=== PATIENT | female | born 1975 | race African-American/Black ===

== ENCOUNTER 2016-08-06 18:22 | Emergency (ER) | payer MEDICAID ==
[~2016-08-06] VITALS: Ht 162.6 cm; Wt 72.6 kg
[~2016-08-06 18:22] MED LIST: ALBUTEROL SULF8.5 GM INH; AMOXICILLIN500 MG PO; ATENOLOL100 MG ORAL; AUGMENTIN 875-1 EAC1 ORAL; AZITHROMYCIN250 MG ORAL; AZITHROMYCIN250 MG PO; CIPROFLOXACIN500 M2 ORAL; DIFLUCAN100 MG ORAL; DOXYCYCLINE MO100 MG ORAL; FLAGYL500 MG ORAL; FLONASE1 SPRAYS NASAL; GUAIFENESIN-CO118 M1 ORAL; HYDROCHLOROTHIA50 MG ORAL; IBUPROFEN600 MG PO; KEFLEX500 MG ORAL; MEDROL DOSEPAK4 MG ORAL; METRONIDAZOLE500 MG ORAL; NAPROSYN500 M1 PO; NITROFURANTOIN100 M2 ORAL; NORCO 5-325 TA1 EAC1 ORAL; NORCO 5-325 TA1 EACH ORAL; NORCO 5-325 TA1 EACH PO; PHENAZOPYRIDIN200 MG ORAL; PHENERGAN/CODE120 ML ORAL; PHENERGAN/CODE120 ML PO; PHENERGAN6.25 MG/5 ORAL; PREDNISONE20 MG ORAL; PROAIR HFA8.5 GM INH; PROMETHAZI6.25 MG/1 ORAL; PROMETHAZINE-C118 M1 ORAL; ROBITUSSIN DM5 ML GT; TENORMIN50 MG PO; TRAMADOL HCL50 MG ORAL; TYLENOL #31 TAB PO; ULTRAM50 MG PO; VICODIN 5-5001 EACH PO; ZITHROMAX250 MG ORAL
[2016-08-06] MEDS ORDERED: PREDNISONE20 M1 PO (19:19)
[2016-08-06] MEDS ORDERED: ZITHROMAX250 MG ORAL (19:19)
[2016-08-06] MEDS ORDERED: PROMETHAZINE-D118 ML ORAL (19:19)
[2016-08-06 19:26] VITALS: BP 137/101
--- NOTE | 2016-08-06 20:06 | Emergency Room Report ---
History of Present Illness General Chief Complaint: Flu Like Symptoms Present Illness HPI The patient is a 41 all female with a stated history of chronic bronchitis presenting for productive cough, sore throat, and subjective fevers which began 4 days prior. The patient states that she explains as a 10 out of 10 dull ache to the chest and back which occurs only with coughing. Patient states that she has tried albuterol which has not helped. The patient denies any other symptoms including N, V, COSBY, neck pain/stiffness, rash Allergies: Coded Allergies: ASPIRIN (Unverified Allergy, Intermediate, Hives, 03/15/12) IBUPROFEN (Unverified Allergy, Unknown, 01/30/14) Patient History Past Medical History: see triage record Pertinent Family History: none Social History: Reports: smoking Reviewed Nursing Documentation: PMH: Agreed, PSxH: Agreed Nursing Documentation-PMH Hx Hypertension: Yes Hx Pacemaker: No Hx Asthma: No Hx COPD: Yes - BRONCHITIS Hx Diabetes: No Hx Cancer: No Hx Gastrointestinal Problems: No Hx Dialysis: No Hx Neurological Problems: No Hx Cerebrovascular Accident: No Hx Seizures: No Review of Systems All Other Systems: negative except mentioned in HPI Physical Exam Vital Signs Date Time Temp Pulse Resp B/P Pulse Ox O2 Delivery O2 Flow Rate FiO2 08/06/16 18:30 98.2 121 20 137/101 97 Room Air Sp02 EP Interpretation: reviewed, normal General Appearance: no apparent distress, alert, GCS 15, non-toxic Head: normocephalic, atraumatic Eyes: bilateral eye PERRL, bilateral eye normal inspection ENT: hearing grossly normal, normal pharynx, no angioedema, normal voice, uvula midline Neck: full range of motion, supple/symm/no masses Respiratory: chest non-tender, normal breath sounds, speaking full sentences, wheezing Cardiovascular #1: regular rate, rhythm, no edema Musculoskeletal: back normal, gait/station normal, normal range of motion, non- tender Neurologic: alert, oriented x3, responsive, motor strength/tone normal, sensory intact, speech normal Psychiatric: judgement/insight normal, memory normal, mood/affect normal, no suicidal/homicidal ideation Skin: normal color, no rash, warm/dry, well hydrated Lymphatic: no adenopathy Medical Decision Making PA Attestation Dr. Posey is my supervising physician. Patient management was discussed with my supervising physician Diagnostic Impression: Primary Impression: Bronchitis ER Course The patient is a 41 y.o female with a stated history of chronic bronchitis presenting for productive cough, sore throat, and subjective fevers Differential diagnosis include but not limited to pharyngitis, sinusitis, AOM, bronchitis, PNA Physical exam: afebrile. NAD HEENT exam is unremarkable. No tonsillar edema or erythema. Uvula midline. No cervical lymphadenopathy Lungs: Diffuse wheezing. No excessive muscle use. No respiratory distress Chest x-ray unremarkable The patient will be discharged home with a prescription for prednisone, cough medication, and azithromycin due to history of smoking and bronchitis. Patient will follow up with PMD. ER precautions are given Chest X-Ray Diagnostic Results EP Interpretation: Yes Findings: no consolidation, no effusion, no pneumothorax Number of Views: 1 PA Scribe Text I am acting as scribe for my supervising physician. My supervising physician's interpretation of the chest xrays are there is no consolidation, no effusion, no acute cardiopulmonary disease, no pneumothorax Last Vital Signs Date Time Temp Pulse Resp B/P Pulse Ox O2 Delivery O2 Flow Rate FiO2 08/06/16 19:26 98.2 20 137/101 97 Room Air 08/06/16 18:30 121 Status: improved Disposition: HOME, SELF-CARE Condition: Improved Scripts D-Methorphan Hb/Prometh Hcl* (PROMETHAZINE-DM SYRUP*) 118 Ml Syrup 5 ML ORAL Q6H Y for For Cough, #118 ML 0 Refills Prov: TERZIAN,CASEY P.A. 08/06/16 Prednisone (Prednisone) 20 Mg Tablet 20 MG PO DAILY, #5 TAB Prov: TERZIAN,CASEY P.A. 08/06/16 Azithromycin* (ZITHROMAX*) 250 Mg Tablet 250 MG ORAL DAILY, #6 TAB 0 Refills Take two tables once daily for 1 day, then one tablet once daily for 4 days. Prov: TERZIAN,CASEY P.A. 08/06/16 Referrals: NON PHYSICIAN (PCP) Patient Instructions: Acute Bronchitis Additional Instructions: I discussed my findings with the patient. All questions and concerns have been answered. Treatment and medication compliance have been addressed. I advised the patient that they need to follow up with PMD in 3-5 days. Return to ED if pain remains or worsens, cough worsens or remains, you notice blood in your sputum, you notice wheezing, you experience a fever, or if needed for any reason. Patient verbalized understanding of discharge instructions. CASEY PACKER Aug 06, 2016 20:05
--- NOTE | 2016-08-07 10:08 | Diagnostic Imaging Report ---
Indication: COUGH Technique: XRAY CHEST 1 V Comparison: 01/14/2015. Findings: The cardiomediastinal silhouette is normal. The lungs are clear. There is no evidence of pleural fluid. The bones are unremarkable. Impression: Normal chest.
== END 2016-08-06 19:26 | disposition home or self-care (01) ==
LOC: EMR 18:40
DX: J20.9 Acute bronchitis, unspecified (principal); Z88.6 Allergy status to analgesic agent; I10 Essential (primary) hypertension
CPT/HCPCS: 71010; 99284

== ENCOUNTER 2017-05-27 22:32 | Emergency (ER) | payer MEDICAID ==
[~2017-05-27] VITALS: Ht 170.2 cm; Wt 77.1 kg
[~2017-05-27 22:32] MED LIST changes: +PREDNISONE20 M1 PO; +PROMETHAZINE-D118 ML ORAL
--- NOTE | 2017-05-27 23:06 | Emergency Room Report ---
History of Present Illness General Chief Complaint: To Be Triaged Source: Patient Present Illness [facility] This is a 42-year-old female with history of asthma. She presents with chief complaint of coughing, sore throat, body pain. Has been ongoing for last 2 days. Subjective fever and chills. Also with a small cut on her tongue. No other complaint. Pain is 10 out of 10. Coughing is nonproductive in nature. Allergies: Coded Allergies: ASPIRIN (Unverified Allergy, Intermediate, Hives, 03/15/12) IBUPROFEN (Unverified Allergy, Unknown, 01/30/14) Patient History Past Medical History: see triage record, old chart reviewed, asthma Past Surgical History: other Pertinent Family History: none Social History: Denies: smoking Now: No Immunizations: other Reviewed Nursing Documentation: PMH: Agreed, PSxH: Agreed Nursing Documentation-PMH Hx Hypertension: Yes Hx Pacemaker: No Hx Asthma: No Hx COPD: Yes - BRONCHITIS Hx Diabetes: No Hx Cancer: No Hx Gastrointestinal Problems: No Hx Dialysis: No Hx Neurological Problems: No Hx Cerebrovascular Accident: No Hx Seizures: No Review of Systems Constitutional: Reports: chills, fever Eye: Denies: eye pain, blurred vision ENT: Reports: nose congestion, throat pain Respiratory: Reports: cough, shortness of breath Cardiovascular: Denies: chest pain, palpitations Gastrointestinal: Denies: abdominal pain, diarrhea, nausea, vomiting Musculoskeletal: Denies: back pain, joint pain Skin: Denies: rash Neurological: Denies: headache, numbness Endocrine: Denies: increased thirst, increased urine Hematologic/Lymphatic: Denies: easy bruising All Other Systems: negative except mentioned in HPI Physical Exam vitals stable. Sp02 EP Interpretation: reviewed, normal General Appearance: well appearing, no apparent distress, alert Head: normocephalic, atraumatic Eyes: bilateral eye PERRL, bilateral eye EOMI ENT: hearing grossly normal, pharyngeal erythema Neck: full range of motion, supple, no meningismus Respiratory: chest non-tender, lungs clear, normal breath sounds Cardiovascular #1: regular rate, rhythm, no murmur Gastrointestinal: normal bowel sounds, non tender, no mass, no organomegaly, no bruit, non-distended Musculoskeletal: back normal, gait/station normal, normal range of motion Psychiatric: mood/affect normal Skin: warm/dry Medical Decision Making Diagnostic Impression: Primary Impression: Influenza-like illness ER Course Patient with influenza-like illness. No evidence of bacterial infection. No evidence of wheezing. She does have a cough with inspiration. She's already on her inhaler. We'll per her on steroid. Because of her history of asthma, I will put her on Tamiflu even though this has been more than 48 hours. much reassured the patient that her symptoms are viral in nature. There is no Magic pill that will fix her problem tomorrow. with treated symptomatically. Status: unchanged Disposition: HOME, SELF-CARE Condition: Stable Scripts Oseltamivir Phosphate (Tamiflu) 75 Mg Capsule 75 MG ORAL TWICE A DAY, #10 CAP Prov: SYLVIA BERMEO M.D. 05/27/17 Acetaminophen* (ACETAMINOPHEN EXTRA STRENGTH*) 500 Mg Tablet 1000 MG ORAL Q8H Y for Fever/Headache/Mild Pain, #30 TAB Prov: SYLVIA BERMEO M.D. 05/27/17 Prednisone* (PREDNISONE*) 20 Mg Tablet 60 MG ORAL DAILY, #15 TAB Prov: SYLVIA BERMEO M.D. 05/27/17 Additional Instructions: Rest. Increase fluid. Saltwater gargle. Followup your DrAlexa in 3-5 days. Return worse. SYLVIA BERMEO M.D. May 27, 2017 23:06
[2017-05-27] MEDS ORDERED: ACETAMINOPHEN500 M3 ORAL (23:09)
[2017-05-27] MEDS ORDERED: PREDNISONE20 MG ORAL (23:09)
[2017-05-27] MEDS ORDERED: TAMIFLU75 MG ORAL (23:11)
[2017-05-27] MEDS ORDERED: Acetaminophen 500mg (ES) tab ORAL ONE (23:15)
[2017-05-27 23:45] VITALS: BP 122/89
== END 2017-05-27 23:26 | disposition home or self-care (01) ==
LOC: EMR 22:50
DX: J11.1 Influenza due to unidentified influenza virus with other respiratory manifestations (principal); R05 Cough; J02.9 Acute pharyngitis, unspecified; R50.9 Fever, unspecified; Z88.8 Allergy status to other drugs, medicaments and biological substances; I10 Essential (primary) hypertension; J44.9 Chronic obstructive pulmonary disease, unspecified; S01.512A Laceration without foreign body of oral cavity, initial encounter; Y93.89 Activity, other specified; X58.XXXA Exposure to other specified factors, initial encounter; Y92.89 Other specified places as the place of occurrence of the external cause
CPT/HCPCS: 99284

== ENCOUNTER 2017-11-19 14:02 | Emergency (ER) | payer MEDICAID ==
[~2017-11-19] VITALS: Ht 165.1 cm; Wt 79.4 kg
[~2017-11-19 14:02] MED LIST changes: +ACETAMINOPHEN500 M3 ORAL; +TAMIFLU75 MG ORAL
[2017-11-19 14:31] VITALS: BP 144/99
[2017-11-19] MEDS ORDERED: Norco 5mg/325mg tab PO ONE (15:00)
[2017-11-19 15:11] LABS: APPEARANCE,URINE CLOUDY; BILIRUBIN, URINE NEGATIVE (NEGATIVE); GLUCOSE, URINE (UA) NEGATIVE (NEGATIVE); KETONES,URINE 1+ (NEGATIVE); LEUKOCYTE ESTERASE ,URINE 3+ (NEGATIVE); NITRITE,URINE NEGATIVE (NEGATIVE); PH,URINE 5 (4.5-8.0); PROTEIN,URINE 2+ (NEGATIVE); UROBILINOGEN,URINE 4 MG/DL (0.0-1.0)
[2017-11-19 15:12] LABS: COLOR,URINE YELLOW
--- NOTE | 2017-11-19 15:20 | Emergency Room Report ---
History of Present Illness General Chief Complaint: Female Urogenital Problems Source: Patient Present Illness HPI 42-year-old female presents ED complaining of right knee pain. States that she had history of surgery to the right knee in May this year. States that she tripped and fell today landing on her right knee. Notes swelling to the knee. Pain is throbbing, 10 out of 10, nonradiating. Patient also noting vaginal discharge. Possible concern for STD. States the discharge is green. Denies dysuria or hematuria. Denies flank pain. Denies nausea or vomiting. No other aggravating relieving factors. Denies any other associated symptoms Allergies: Coded Allergies: ASPIRIN (Unverified Allergy, Intermediate, Hives, 03/15/12) IBUPROFEN (Unverified Allergy, Unknown, 01/30/14) Patient History Past Medical History: HTN, asthma Past Surgical History: other - R knee Pertinent Family History: none Social History: Denies: smoking, alcohol use, drug use Last Menstrual Period: NA Now: No Immunizations: UTD Reviewed Nursing Documentation: PMH: Agreed; PSxH: Agreed Nursing Documentation-PMH Past Medical History: No History, Except For Hx Hypertension: Yes Hx Pacemaker: No Hx Asthma: Yes Hx COPD: Yes - BRONCHITIS Hx Diabetes: No Hx Cancer: No Hx Gastrointestinal Problems: No Hx Dialysis: No Hx Neurological Problems: No Hx Cerebrovascular Accident: No Hx Seizures: No Review of Systems All Other Systems: negative except mentioned in HPI Physical Exam Vital Signs Date Time Temp Pulse Resp B/P (MAP) Pulse Ox O2 Delivery O2 Flow Rate FiO2 11/19/17 14:07 98.2 92 16 144/99 95 Room Air 98.2 Sp02 EP Interpretation: reviewed, normal General Appearance: no apparent distress, alert, GCS 15, non-toxic Head: normocephalic Eyes: bilateral eye normal inspection, bilateral eye PERRL ENT: normal ENT inspection Neck: normal inspection Respiratory: normal inspection Cardiovascular #1: normal inspection Gastrointestinal: normal inspection Rectal: deferred Genitourinary: no CVA tenderness Musculoskeletal: tender - R knee Neurologic: alert, oriented x3, responsive, motor strength/tone normal, sensory intact, speech normal Psychiatric: judgement/insight normal, memory normal, mood/affect normal, no suicidal/homicidal ideation Skin: normal inspection Lymphatic: normal inspection Procedures Splinting Splinting : Consent: Verbal Pre-Made Type: GERMAN wrap - R knee Pre-Proc Neuro Vasc Exam: normal Post-Proc Neuro Vasc Exam: normal Patient Tolerated: Well Complications: None Medical Decision Making Diagnostic Impression: Primary Impression: UTI (urinary tract infection) Qualified Codes: N39.0 - Urinary tract infection, site not specified Additional Impressions: Encounter for assessment of STD exposure Knee pain, right Qualified Codes: M25.561 - Pain in right knee ER Course Hospital Course 42-year-old female presents ED with greenish urethral discharge. History of unprotected sex. c/o R knee pain s/p fall Differential diagnoses include: trichimonas, gonorrhea, chlamydia Clinical course Patient placed on stretcher. After initial history and physical I ordered UA, right knee x-ray Right knee x-ray shows no acute fracture or dislocation. Placed in German wrap UA positive bacteria. Concern for STI. We'll treat for Trichomonas and gonorrhea and chlamydia. Given Rocephin/azithromycin here Diagnosis - UTI, encounter for STD exposure, R knee pain Stable and discharged home with prescriptions for Rx Flagyl, keflex, Tylenol # 3. Instructed to followup with PMD. Return to ED if symptoms recur or worsen Labs Test 11/19/17 14:48 Urine Color Yellow Urine Appearance Cloudy Urine pH 5 (4.5-8.0) Urine Specific [place] 1.025 (1.005-1.035) Urine Protein 2+ (NEGATIVE) Urine Glucose (UA) Negative (NEGATIVE) Urine Ketones 1+ (NEGATIVE) Urine Occult Blood 2+ (NEGATIVE) Urine Nitrite Negative (NEGATIVE) Urine Bilirubin Negative (NEGATIVE) Urine Urobilinogen 4 MG/DL (0.0-1.0) Urine Leukocyte Esterase 3+ (NEGATIVE) Urine RBC 15-20 /HPF (0 - 2) Urine WBC Tntc /HPF (0 - 2) Urine Squamous Epithelial Cells Few /LPF (NONE/OCC) Urine Calcium Oxalate Crystals Few /LPF (NONE) Urine Bacteria Moderate /HPF (NONE) Last Vital Signs Date Time Temp Pulse Resp B/P (MAP) Pulse Ox O2 Delivery O2 Flow Rate FiO2 11/19/17 14:55 98.2 11/19/17 14:31 16 144/99 95 Room Air 11/19/17 14:07 92 Status: improved Disposition: HOME, SELF-CARE Condition: Stable Scripts Acetaminophen With Codeine (T#3) (TYLENOL #3 TAB*) Y Tab 1 TAB ORAL Q8H PRN for For Pain, #20 TAB Prov: Vance Posey MD 11/19/17 Cephalexin* (KEFLEX*) 500 Mg Capsule 500 MG ORAL EVERY 6 HOURS, #28 CAP Prov: Vance Posey MD 11/19/17 Metronidazole* (FLAGYL*) 500 Mg Tablet 500 MG ORAL THREE TIMES A DAY, #21 TAB Prov: Vance Posey MD 11/19/17 Vance Posey MD Nov 19, 2017 15:20
[2017-11-19] MEDS ORDERED: Azithromycin 250mg tab ORAL ONE (15:30)
[2017-11-19] MEDS ORDERED: Lidocaine 1% MPF 10mg/ml 5ml INJ ONE (15:30)
[2017-11-19] MEDS ORDERED: CEPHALEXIN500 MG ORAL (15:38)
[2017-11-19] MEDS ORDERED: ACETAMINOPHEN-1 EAC1 ORAL (15:38)
[2017-11-19] MEDS ORDERED: METRONIDAZOLE500 MG ORAL (15:38)
[2017-11-19 15:48] VITALS: BP 132/92
--- NOTE | 2017-11-20 10:52 | Diagnostic Imaging Report ---
Indication: Knee pain Technique: 3 views of the right knee Comparison: None Findings: There is a tiny superior pole patellar osteophyte and medial compartment osteophytes. The joint spaces are preserved. No acute fractures. No dislocations. There is equivocally a small suprapatellar effusion. Impression: No acute bony trauma
== END 2017-11-19 15:40 | disposition home or self-care (01) ==
LOC: EMR 14:45
DX: N39.0 Urinary tract infection, site not specified (principal); M25.561 Pain in right knee; Z20.2 Contact with and (suspected) exposure to infections with a predominantly sexual mode of transmission; Z88.6 Allergy status to analgesic agent; I10 Essential (primary) hypertension; J45.909 Unspecified asthma, uncomplicated
CPT/HCPCS: 73562; 81001; 87086; 96372; 99283; J0696; Q0144

== ENCOUNTER 2017-12-13 12:00 | Emergency (ER) | payer MEDICAID ==
[~2017-12-13] VITALS: Ht 170.2 cm; Wt 85.3 kg
[~2017-12-13 12:00] MED LIST changes: +ACETAMINOPHEN-1 EAC1 ORAL; +CEPHALEXIN500 MG ORAL
[2017-12-13] MEDS ORDERED: Acetaminophen 500mg (ES) tab ORAL ONE (12:30)
[2017-12-13] MEDS ORDERED: Albuterol/Ipratropium 3ml neb HHN ONE (12:30)
--- NOTE | 2017-12-13 12:52 | Emergency Room Report ---
History of Present Illness General Chief Complaint: Lower Extremity Injury Source: Patient, Medical Record Present Illness HPI 42-year-old female patient presents to ER with multiple complaints. Patient reporting bilateral leg pain from her calf down to her feet. Reports pain is been present for the past few weeks. Reports 2 weeks ago she went to [facility] have her legs checked, states that they ruled out DVT at that time with ultrasound. Reports pain is worse after walking, reports pain symptoms improve when she stopped. Reports that she has been elevating her legs and taking Tylenol for pain symptoms. Reports history of hypertension, currently taking clonidine and amlodipine. Denies chest pain,, abdominal pain, vision changes. Also has a history of Graves' disease. Also reports history of asthma , complaining of cough for the several days. Reports difficulty breathing. Reports use her inhaler last night without relief of symptoms. Denies fever, vomiting, other acute symptoms. Hx of emphysema, reports quit smoking years ago. 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 Denies hx of TB, denies night sweats, weight loss. Allergies: Coded Allergies: ASPIRIN (Unverified Allergy, Intermediate, Hives, 03/15/12) IBUPROFEN (Unverified Allergy, Unknown, 01/30/14) Patient History Past Medical History: see triage record Reviewed Nursing Documentation: PMH: Agreed; PSxH: Agreed Nursing Documentation-PMH Past Medical History: No History, Except For Hx Hypertension: Yes Hx Pacemaker: No Hx Asthma: Yes Hx COPD: Yes - BRONCHITIS Hx Diabetes: No Hx Cancer: No Hx Gastrointestinal Problems: No Hx Dialysis: No Hx Neurological Problems: No Hx Cerebrovascular Accident: No Hx Seizures: No Review of Systems All Other Systems: negative except mentioned in HPI Physical Exam Vital Signs Date Time Temp Pulse Resp B/P (MAP) Pulse Ox O2 Delivery O2 Flow Rate FiO2 12/13/17 12:04 98.0 88 18 128/84 95 Room Air 98.1 Sp02 EP Interpretation: reviewed, normal General Appearance: well appearing, no apparent distress, alert, GCS 15, non- toxic Head: normocephalic, atraumatic Eyes: bilateral eye normal inspection, bilateral eye PERRL ENT: hearing grossly normal, normal pharynx, no angioedema, normal voice, TMs + canals normal, uvula midline, moist mucus membranes Neck: full range of motion Respiratory: lungs clear, no rhonchi, no respiratory distress, no accessory muscle use, no wheezing, decreased breath sounds, speaking full sentences Cardiovascular #2: 2+ radial (R), 2+ radial (L), 2+ dorsalis pedis (R), 2+ dorsalis pedis (L) Genitourinary: no CVA tenderness Musculoskeletal: back normal, digits/nails normal, gait/station normal, normal range of motion, non-tender, no calf tenderness, Pankaj's Sign negative Neurologic: alert, oriented x3, responsive, motor strength/tone normal, SLR negative, sensory intact Psychiatric: mood/affect normal Skin: other - no pallor, no erythema, no edema Medical Decision Making PA Attestation Dr. Angel is my supervising Physician whom patient management has been discussed with. Diagnostic Impression: Primary Impression: Lower extremity pain, bilateral Additional Impressions: Cough History of asthma ER Course Pt presents to ED c/o cough and bilateral lower leg pain. DDX considered but are not limited to asthma, viral URI, influenza, bronchitis. Pankaj sign negative, no calf swelling, low suspicion for DVT. Low suspicion for pulmonary embolism per well's criteria. lungs have no wheezes, rhonchi or rales, no fever, suspicion for pneumonia, does not require chest x-ray at this time. VITAL SIGNS are WNL, patient is afebrile. Ordered breathing treatment and medication. ER COURSE Patient provided with prednisone. Albuterol/Atrovent breathing treatment provided. Following treatment patient states breathing symptoms improved, no wheezes, rhonci, or rales on auscultation. Patient is resting comfortably in no acute distress, nontoxic appearing. Discharge home with prednisone and albuterol. Take prednisone beginning tomorrow. Provided with Rx for promethazine cough medication. Provided with Tylenol in ER for pain symptoms. Bedside Doppler shows 2+ dorsalis pedis pulses bilaterally. No pallor, poikilothermia, pulselessness, low suspicion for arterial occlusion. Discuss use of compression stockings and other treatments with PCP. No hx of injury, no warmth to palpation, no swollen joints, low suspicion for septic joint or injury, does not require imaging at this time. Followup outpatient for further imaging and treatment. Pain may be related to overuse due to hx of job requiring longs periods of standing. patient observed ambulating with steady gait without limp on the ER without difficulty. RICE method: rest, ice, compression, elevation. Followup with PCP to discuss need for vascular referral and imaging. Discus HTN medications and need for cardiology referral. DISCHARGE: -Rx given for Prednisone. -Rx provided for Albuterol MDI. -Rx provided for Tylenol -Rx provided for promethazine At this time pt is stable for d/c to home. Patient is resting comfortably in no acute distress, nontoxic appearing, able to answer questions without difficulty. Patient to take medications as instructed Will provide with patient care instructions and any necessary prescriptions. Care plan and follow-up instructions provided. Patient instructed to follow-up with primary care provider in 3 - 5 days. Patient questions asked and answered. Patient reports understanding and agreement to treatment plan. ER precautions given. Patient instructed to return to ER immediately for any new or worsening of symptoms including but not limited to increasing SOB, persistent fever. - Please note that this Emergency Department Report was dictated using [employer] development manager technology software, occasionally this can lead to erroneous entry secondary to interpretation by the dictation equipment. Last Vital Signs Date Time Temp Pulse Resp B/P (MAP) Pulse Ox O2 Delivery O2 Flow Rate FiO2 12/13/17 12:04 98.0 88 18 128/84 95 Room Air 98.1 Status: improved Disposition: HOME, SELF-CARE Condition: Stable Scripts Promethazine Hcl (PROMETHAZINE HCL*) 6.25 Mg/5 Ml Syrup 5 ML ORAL Q8H, #120 ML 0 Refills Prov: Kelvin Silverio.A. 12/13/17 Acetaminophen* (TYLENOL EXTRA STRENGTH*) 500 Mg Tablet 500 MG ORAL Q8H PRN for Prn Headache/Temp > 101, #30 TAB 0 Refills Prov: Kelvin Silverio.A. 12/13/17 Prednisone* (PREDNISONE*) 20 Mg Tablet 40 MG ORAL DAILY for 4 Days, #8 TAB Prov: Kelvin Silverio.A. 12/13/17 Albuterol Sulfate* (ALBUTEROL SULFATE MDI*) 8.5 Gm Hfa.aer.ad 2 PUFF INH Q6H, #1 INH 0 Refills Prov: Kelvin Silverio.A. 12/13/17 Patient Instructions: Cough, Adult, [id number], Intermittent Claudication Additional Instructions: Patient instructed to follow up with primary care provider and discuss further referral at that time. Discuss referral to cardiology and vascular specialist. Discuss need for further imaging at that time. Followup with thyroid specialist. Patient instructed on RICE method: rest, ice, compression, elevation. Patient instructed to WBAT. Take medications as directed. Patient questions asked and answered. ER precautions given, patient instructed to return to ER immediately for any new or worsening of symptoms. Kelvin Silverio Dec 13, 2017 12:52
[2017-12-13] MEDS ORDERED: PREDNISONE20 MG ORAL (13:11)
[2017-12-13] MEDS ORDERED: ALBUTEROL SULF8.5 GM INH (13:11)
[2017-12-13] MEDS ORDERED: TYLENOL EXTRA500 MG ORAL (13:11)
[2017-12-13] MEDS ORDERED: PROMETHAZI6.25 MG/1 ORAL (13:18)
[2017-12-13 13:23] VITALS: BP 119/76
== END 2017-12-13 13:23 | disposition home or self-care (01) ==
LOC: EMR 12:41
DX: M79.605 Pain in left leg (principal); M79.604 Pain in right leg; R05 Cough; I10 Essential (primary) hypertension; Z88.6 Allergy status to analgesic agent; J44.9 Chronic obstructive pulmonary disease, unspecified
CPT/HCPCS: 94640; 94664; 99284; J7512; J7620

== ENCOUNTER 2018-07-26 14:21 | Emergency (ER) | payer MEDICAID ==
[~2018-07-26] VITALS: Ht 170.2 cm; Wt 90.7 kg
[~2018-07-26 14:21] MED LIST changes: +TYLENOL EXTRA500 MG ORAL
[2018-07-26] MEDS ORDERED: LEVOTHYROXINE175 MCG ORAL (14:28)
[2018-07-26] MEDS ORDERED: AMLODIPINE BESY10 MG ORAL (14:28)
[2018-07-26 14:30] VITALS: BP 140/97
--- NOTE | 2018-07-26 14:40 | NUR ---
ED Nurse Note: pt walked in c/o left knee pain and swelling, denies injury, pt states she's been having pain for a while. noted tenderness and mild swelling but no sx injury, no open wound noted, CMS intact BLE, cap refill <3sec. will cont monitor.
[2018-07-26] MEDS ORDERED: Tylenol #3 tab (300mg/30mg) ORAL ONE (15:30)
[2018-07-26] MEDS ORDERED: Ketorolac 30mg Inj IM ONE (15:45)
--- NOTE | 2018-07-26 16:28 | Emergency Room Report ---
History of Present Illness General Chief Complaint: Pain Source: Patient Present Illness HPI 43-year-old female presents to the emergency department complaining of localized progressive 10 out of 10 in severity pain and swelling to the left knee 4 days. Patient reports several falls just prior to onset of her symptoms. Patient states that she feels as though her knee wants to give out from under her. Patient denies recent open wounds, erythema or warmth. Patient reports some pain with movement/bending. Denies calf pain or swelling. Denies numbness tingling or loss of sensation or gross motor movements of the extremities, incontinence of bowel or bladder. Denies CP, Palpitations, LOC, AMS , dizziness, Changes in Vision, weakness or a sudden severe headache. Pain exacerbated with walking. pt. able to bear some weight. Denies fevers or chills. Allergies: Coded Allergies: ASPIRIN (Unverified Allergy, Intermediate, Hives, 03/15/12) IBUPROFEN (Unverified Allergy, Unknown, 01/30/14) Patient History Past Medical History: see triage record Past Surgical History: none Pertinent Family History: none Now: No Reviewed Nursing Documentation: PMH: Agreed; PSxH: Agreed Nursing Documentation-PMH Past Medical History: No History, Except For Hx Hypertension: Yes Hx Pacemaker: No Hx Asthma: Yes Hx COPD: Yes - BRONCHITIS Hx Diabetes: No Hx Cancer: No Hx Gastrointestinal Problems: No Hx Dialysis: No Hx Neurological Problems: No Hx Cerebrovascular Accident: No Hx Seizures: No Review of Systems All Other Systems: negative except mentioned in HPI Physical Exam Vital Signs Date Time Temp Pulse Resp B/P (MAP) Pulse Ox O2 Delivery O2 Flow Rate FiO2 07/26/18 14:22 97.9 110 20 159/101 98 Room Air Sp02 EP Interpretation: reviewed, normal General Appearance: alert, GCS 15, non-toxic, mild distress Head: normocephalic, atraumatic Eyes: bilateral eye normal inspection, bilateral eye PERRL ENT: hearing grossly normal, normal voice Neck: full range of motion Respiratory: lungs clear, normal breath sounds, speaking full sentences Cardiovascular #1: regular rate, rhythm Cardiovascular #2: 2+ dorsalis pedis (R), 2+ dorsalis pedis (L) Musculoskeletal: back normal, normal range of motion - with pain, tender - Left Knee, Swelling, no erythema or warmth. FROM with pain, no increased laxity of ligaments, no obvious deformity Neurologic: alert, oriented x3, responsive, motor strength/tone normal, sensory intact, speech normal, grossly normal Psychiatric: judgement/insight normal Skin: normal color, no rash, warm/dry, well hydrated Lymphatic: no adenopathy Medical Decision Making PA Attestation Dr. Schwarz is my supervising Physician whom patient management has been discussed with. Diagnostic Impression: Primary Impression: Knee effusion Qualified Codes: M25.462 - Effusion, left knee ER Course 43-year-old female presents to the emergency department complaining of localized progressive 10 out of 10 in severity pain and swelling to the left knee 4 days. Patient reports several falls just prior to onset of her symptoms. Patient states that she feels as though her knee wants to give out from under her. Patient denies recent open wounds, erythema or warmth. Patient reports some pain with movement/bending. Denies calf pain or swelling. Denies numbness tingling or loss of sensation or gross motor movements of the extremities, incontinence of bowel or bladder. Denies CP, Palpitations, LOC, AMS , dizziness, Changes in Vision, weakness or a sudden severe headache. Pain exacerbated with walking. pt. able to bear some weight. Denies fevers or chills. Ddx considered but are not limited to Fracture, dislocation, contusion, septic joint, pseudo gout, gout, cellulitis, effusion , Sprain/Strain/Spasm, ligamental injury just to name a few. Vital signs: are WNL, pt. is afebrile H&PE are most consistent with knee strain/ overuse. ORDERS: X-ray Right knee complete 3 view - negative for fx, Dislocation, or significant soft tissue injury ED INTERVENTIONS: - Tylenol # 3 -Knee Immobilizer splint applied to the Right Knee by technical document writer. Pt. remains neurovascularly intact. --Patient is provided with crutches and instructed on their use -I do not identify an emergent condition at this time. With current presentation , pt. is stable for close outpatient follow up and conservative treatment. D/ w pt. to return promptly to ED with worsening or new symptoms.- Pt. verbalizes' understanding and agreement with proposed treatment plan.proposed treatment plan. DISCHARGE: At this time pt. is stable for d/c to home. Will provide printed patient care instructions, and any necessary prescriptions. Care plan and follow up instructions have been discussed with the patient prior to discharge. Other X-Ray Diagnostic Results Other X-Ray Diagnostic Results : X-Ray ordered: Left KNee # of Views/Limited Vs Complete: 3 View Indication: Pain EP Interpretation: Yes PA Xray: Interpretation reviewed, by supervising MD, and agrees with findings. Interpretation: no dislocation, no soft tissue swelling, no fractures Impression: No acute disease Electronically Signed by: Debo Amos PA-C Last Vital Signs Date Time Temp Pulse Resp B/P (MAP) Pulse Ox O2 Delivery O2 Flow Rate FiO2 07/26/18 14:30 97.9 98 18 140/97 98 Room Air Status: improved Disposition: HOME, SELF-CARE Condition: Stable Scripts Diclofenac Sodium (VOLTAREN) 100 Gm Gel..gram. 1 APPLIC TP Q6HR, #100 GM Prov: Debo Amos 07/26/18 Hydrocodone Bit/Acetaminophen 5-325* (NORCO 5-325*) 1 Each Tablet 1 TAB ORAL Q6H PRN for For Pain, #15 TAB 0 Refills Prov: Debo Amos 07/26/18 Patient Instructions: Knee Effusion, [id number] Additional Instructions: Take medications as directed. Follow up with an CNC TECHNICIAN in 3-5 days, even if your symptoms have resolved. If symptoms persist MRI may be required at the discretion of your PCP or Ortho Specialist. --Please review list of primary care clinics, if you do not already have a primary care provider who can give you an Orthopedic Referral. Return sooner to ED if new symptoms occur, or current symptoms become worse. Do not drink alcohol, drive, or operate heavy machinery while taking [place] as this may cause drowsiness. - Please note that this Emergency Department Report was dictated using [employer] fuselage framer technology software, occasionally this can lead to erroneous entry secondary to interpretation by the dictation equipment. Debo Amos Jul 26, 2018 16:28
--- NOTE | 2018-07-26 16:41 | Diagnostic Imaging Report ---
Indications: Left knee pain Technique: Three views of the left knee Comparison: None Findings: No acute fractures. No dislocations. Joint spaces are preserved. No radiopaque foreign body. Normal mineralization. Impression: No acute process
[2018-07-26] MEDS ORDERED: VOLTAREN100 G1 TP (16:51)
[2018-07-26] MEDS ORDERED: NORCO 5-325 TA1 EACH ORAL (16:51)
--- NOTE | 2018-07-26 17:00 | NUR ---
ER DISCHARGE NOTE: Patient is cleared to be discharged per ERPA, pt is aox4, on room air, with stable vital signs. pt was given dc and prescription instructions, pt was able to verbalize understanding, pt id band removed pt is able to ambulate with steady gait. pt took all belongings.
[2018-07-26 17:13] VITALS: BP 140/97
== END 2018-07-26 17:16 | disposition home or self-care (01) ==
LOC: EMR 14:58
DX: M25.462 Effusion, left knee (principal); M25.562 Pain in left knee; I10 Essential (primary) hypertension; J44.9 Chronic obstructive pulmonary disease, unspecified; Z88.6 Allergy status to analgesic agent
CPT/HCPCS: 29505; 73562; 96372; 99283; J1885

== ENCOUNTER 2018-07-28 18:12 | Emergency (ER) | payer MEDICAID ==
[~2018-07-28] VITALS: Ht 170.2 cm; Wt 88.5 kg
[~2018-07-28 18:12] MED LIST changes: +AMLODIPINE BESY10 MG ORAL; +LEVOTHYROXINE175 MCG ORAL; +VOLTAREN100 G1 TP
[2018-07-28 18:15] VITALS: BP 152/99
--- NOTE | 2018-07-28 18:18 | NUR ---
ED Nurse Note:pt. was BIBA from home with left knee pain and swelling
[2018-07-28] MEDS ORDERED: Dexamethasone 4mg/ml vial IM ONE (18:30)
[2018-07-28] MEDS ORDERED: Dexamethasone 4mg/ml vial IVP ONE (18:30)
[2018-07-28] MEDS ORDERED: Acetaminophen 500mg (ES) tab ORAL ONE (18:30)
--- NOTE | 2018-07-28 18:53 | Emergency Room Report ---
History of Present Illness General Chief Complaint: Pain Source: Patient Present Illness HPI 43-year-old female with history of left knee effusion brought in by ambulance complaining of worsening of swelling of the left knee. Patient was here 2 days ago for the same complaint x-ray was done and she was discharged with pain medication and was given a Toradol injection in the emergency room at the time. Patient reports she has not started the pain medication yet as she started noticing more swelling and does not believe that the pain medication is going to help with the swelling. Complains of tingling in her left knee has an appointment with a primary care provider. Denies any new injury, pain radiation , rating the pain 10 out of 10 and constant. Complains of decreased range of motion has called her primary care provider and MRI scheduled for this Monday. Reports that her insurance does not cover topical pain medications. Denies chest pain, SOB, palpitation, abdominal pain, and other associated symptoms Allergies: Coded Allergies: ASPIRIN (Unverified Allergy, Intermediate, Hives, 03/15/12) IBUPROFEN (Unverified Allergy, Unknown, 01/30/14) Patient History Past Medical History: see triage record Past Surgical History: none Pertinent Family History: none Last Menstrual Period: 2014 Now: No Immunizations: UTD Reviewed Nursing Documentation: PMH: Agreed; PSxH: Agreed Nursing Documentation-PMH Past Medical History: No History, Except For Hx Hypertension: Yes Hx Pacemaker: No Hx Asthma: Yes Hx COPD: Yes - BRONCHITIS Hx Diabetes: Yes Hx Cancer: No Hx Gastrointestinal Problems: No Hx Dialysis: No Hx Neurological Problems: No Hx Cerebrovascular Accident: No Hx Seizures: No Review of Systems All Other Systems: negative except mentioned in HPI Physical Exam Vital Signs Date Time Temp Pulse Resp B/P (MAP) Pulse Ox O2 Delivery O2 Flow Rate FiO2 07/28/18 18:07 98.1 92 18 152/99 97 Sp02 EP Interpretation: reviewed, normal General Appearance: normal inspection, well appearing, no apparent distress, alert Head: normocephalic, atraumatic Eyes: bilateral eye normal inspection, bilateral eye PERRL ENT: normal ENT inspection, hearing grossly normal Neck: normal inspection, full range of motion, supple Respiratory: normal inspection, chest non-tender, lungs clear Cardiovascular #1: normal inspection, regular rate, rhythm, no gallop, no murmur Cardiovascular #2: 2+ dorsalis pedis (R), 2+ dorsalis pedis (L) Gastrointestinal: normal inspection, non tender, soft Musculoskeletal: back normal, digits/nails normal, swelling - left knee Neurologic: normal inspection, alert, oriented x3 Psychiatric: normal inspection, judgement/insight normal Skin: normal inspection, normal color, no rash Lymphatic: normal inspection, no adenopathy Medical Decision Making PA Attestation all diagnosis and treatment plans were reviewed and discussed with my supervising physician Dr. Schwarz Diagnostic Impression: Primary Impression: Effusion, left knee ER Course 43-year-old female with history of left knee effusion brought in by ambulance complaining of worsening of swelling of the left knee. Patient was here 2 days ago for the same complaint x-ray was done and she was discharged with pain medication and was given a Toradol injection in the emergency room at the time. Patient reports she has not started the pain medication yet as she started noticing more swelling and does not believe that the pain medication is going to help with the swelling. Complains of tingling in her left knee has an appointment with a primary care provider. Denies any new injury, pain radiation , rating the pain 10 out of 10 and constant. Complains of decreased range of motion has called her primary care provider and MRI scheduled for this Monday. Reports that her insurance does not cover topical pain medications. Denies chest pain, SOB, palpitation, abdominal pain, and other associated symptoms Ddx considered but are not limited to Left knee effusion, left knee sprain, left knee fracture, Vital signs: are WNL, pt. is afebrile H&PE are most consistent with left knee effusion ORDERS:Tylenol 500, dexamethasone, prednisone ED INTERVENTIONS: None required at this time. DISCHARGE: At this time pt. is stable for d/c to home. Will provide printed patient care instructions, and any necessary prescriptions. Care plan and follow up instructions have been discussed with the patient prior to discharge. take medication as directed and take a prescription from 2 days ago and new prescription follow with the primary care provider follow-up with MRI and possible physical therapy and orthopedic elevate your leg keep putting the German wrap on her knee to minimize swelling Last Vital Signs Date Time Temp Pulse Resp B/P (MAP) Pulse Ox O2 Delivery O2 Flow Rate FiO2 07/28/18 18:15 98.1 79 18 152/99 97 Disposition: HOME, SELF-CARE Condition: Stable Scripts Acetaminophen* (TYLENOL EXTRA STRENGTH*) 500 Mg Tablet 500 MG ORAL Q8H PRN for Prn Headache/Temp > 101, #30 TAB 0 Refills Prov: Lakshmi Mayorga 07/28/18 Prednisone* (PREDNISONE*) 20 Mg Tablet 20 MG ORAL TID for 3 Days, #9 TAB 0 Refills Prov: Lakshmi Mayorga 07/28/18 Referrals: NON PHYSICIAN (PCP) Patient Instructions: Knee Effusion, [id number] Additional Instructions: take medication as directed, follow with a primary care provider for further imaging such as MRI, elevate your leg, also had this pain icing and heating Lakshmi Mayorga Jul 28, 2018 18:52
[2018-07-28] MEDS ORDERED: TYLENOL EXTRA500 MG ORAL (18:54)
[2018-07-28] MEDS ORDERED: PREDNISONE20 MG ORAL (18:54)
[2018-07-28 19:02] VITALS: BP 152/99
--- NOTE | 2018-07-28 19:04 | NUR ---
Ed Nurse Note:pt. received pain meds and rachelle wrap on left knee pt is cleared to be DC per ER provider, pt discharge and aftercare instruction provided w/ prescription, pt education done via discussion and handout, pt advised to follow up with pcp or return to ED if sx worsen or new sx develop, pt verbalized understanding and agrees with plan, pt vss, ambulatory w/ steady gait, all belongiongs left w/ pt, wristband removed.
== END 2018-07-28 19:05 | disposition home or self-care (01) ==
LOC: EDBD 18:12 → EMR 18:24
DX: M25.462 Effusion, left knee (principal); I10 Essential (primary) hypertension; J45.909 Unspecified asthma, uncomplicated; E11.9 Type 2 diabetes mellitus without complications; Z88.6 Allergy status to analgesic agent
CPT/HCPCS: 96372; 99283; J1100

== ENCOUNTER 2019-02-02 10:07 | Emergency (ER) | payer MEDICAID ==
[~2019-02-02] VITALS: Ht 167.6 cm; Wt 88.5 kg
--- NOTE | 2019-02-02 10:27 | NUR ---
ED Nurse Note: Pt came in from home due to productive coughing with yellowish sputum x 3 days. Has hx of Asthma and Bronchitis and taking HHN at home. Also c/o vaginal discharge yellowish with foul odor and burning sensation while urinating x 2 days.
--- NOTE | 2019-02-02 10:37 | Emergency Room Report ---
History of Present Illness General Chief Complaint: Upper Respiratory Illness Source: Patient, Medical Record Present Illness HPI Patient presents with several complaints initial complaint is cough and congestion Also reports sore throat patient reports that she took a breathing treatment at home and does feel better with her breathing Patient reports that she has also had some increased vaginal discharge She feels that she might have an STD and would like to be treated Denies any vomiting or diarrhea denies any fevers or chills sore throat is 5 out of 10 worse with cough and swallowing Denies any rash denies any recent travel Allergies: Coded Allergies: IBUPROFEN (Unverified Allergy, Unknown, 01/30/14) Patient History Past Medical History: see triage record Last Menstrual Period: 5 years ago Reviewed Nursing Documentation: PMH: Agreed; PSxH: Agreed Nursing Documentation-PMH Past Medical History: No History, Except For Hx Cardiac Problems: No - HYPOTHYROIDISM Hx Hypertension: Yes Hx Pacemaker: No Hx Asthma: Yes Hx COPD: Yes - BRONCHITIS Hx Diabetes: Yes Hx Cancer: No Hx Gastrointestinal Problems: No Hx Dialysis: No History Of Psychiatric Problem: No Hx Neurological Problems: No Hx Cerebrovascular Accident: No Hx Seizures: No Review of Systems All Other Systems: negative except mentioned in HPI Physical Exam Vital Signs Date Time Temp Pulse Resp B/P (MAP) Pulse Ox O2 Delivery O2 Flow Rate FiO2 02/02/19 10:17 98.2 101 18 125/83 (97) 95 Room Air Sp02 EP Interpretation: reviewed, normal General Appearance: well appearing, no apparent distress Head: normocephalic, atraumatic Eyes: bilateral eye PERRL, bilateral eye EOMI ENT: hearing grossly normal, TMs + canals normal, uvula midline, pharyngeal erythema Neck: full range of motion, supple, no meningismus, no bony tend Respiratory: lungs clear, normal breath sounds, no rhonchi, no respiratory distress, no retraction, no accessory muscle use Cardiovascular #1: normal peripheral pulses, regular rate, rhythm, no edema, no gallop, no JVD, no murmur Gastrointestinal: normal bowel sounds, non tender, soft, no mass, no organomegaly, non-distended, no guarding, no hernia, no pulsatile mass, no rebound Genitourinary: no CVA tenderness Musculoskeletal: normal inspection Neurologic: oriented x3, responsive, roller repairer III-XII nml as tested, motor strength/ tone normal, sensory intact Psychiatric: mood/affect normal Skin: no rash Lymphatic: normal inspection, no adenopathy Medical Decision Making Diagnostic Impression: Primary Impression: Pharyngitis Additional Impression: Vaginitis ER Course Given the patient's history and presentation multiple differentials and consideration, patient's upper respiratory evaluation reveals pharyngitis Differential of retropharyngeal abscess and peritonsillar abscess were considered does not appear to be consistent with this Patient's description also matches Clinical diagnosis of vaginitis further evaluation was not, performed with pelvic exam however patient is referred to [facility] clinic for further testing she understands that STD testing has not been performed here and requires appropriate outpatient follow-up patient with return with any changes or concerns Labs Test 02/02/19 10:25 Urine HCG, Qualitative Negative (NEGATIVE) Last Vital Signs Date Time Temp Pulse Resp B/P (MAP) Pulse Ox O2 Delivery O2 Flow Rate FiO2 02/02/19 10:29 101 18 Room Air 02/02/19 10:17 98.2 125/83 (97) 95 Status: improved Disposition: HOME, SELF-CARE Condition: Improved Scripts Metronidazole* (FLAGYL*) 500 Mg Tablet 500 MG ORAL BID, #14 TAB Prov: José Antonio Chen DO 02/02/19 Acetaminophen* (TYLENOL EXTRA STRENGTH*) 500 Mg Tablet 500 MG ORAL Q8H PRN for Prn Headache/Temp > 101, #20 TAB 0 Refills Prov: José Antonio Chen DO 02/02/19 Amoxicillin* (AMOXIL*) 500 Mg Capsule 500 MG ORAL THREE TIMES A DAY, #21 CAP Prov: José Antonio Chen DO 02/02/19 Metronidazole* (METROGEL-VAGINAL*) 70 Gm Gel.w.appl 1 APPL VAGIN BEDTIME for 7 Days, GM Prov: José Antonio Chen DO 02/02/19 Referrals: NON PHYSICIAN (PCP) Additional Instructions: Patient is provided with the discharge instructions notified to follow up with primary doctor in the next 2-3 days otherwise return to the er with any worsening symptoms. Please note that this report is being documented using [employer] technology. This can lead to erroneous entry secondary to incorrect interpretation by the dictating instrument. José Antonio Chen DO Feb 02, 2019 10:36
[2019-02-02] MEDS ORDERED: Azithromycin 250mg tab ONE (10:44)
[2019-02-02] MEDS ORDERED: Azithromycin 250mg tab ORAL ONE (10:45)
[2019-02-02] MEDS ORDERED: Lidocaine 1% MPF 10mg/ml 5ml INJ ONE (10:45)
[2019-02-02] MEDS ORDERED: METROGEL-VAGINA70 G1 VAGIN (10:54)
[2019-02-02] MEDS ORDERED: TYLENOL EXTRA500 MG ORAL (10:54)
[2019-02-02] MEDS ORDERED: AMOXICILLIN500 MG ORAL (10:54)
[2019-02-02 11:01] VITALS: BP 134/93
[2019-02-02 11:06] VITALS: BP 134/93
[2019-02-02] MEDS ORDERED: METRONIDAZOLE500 MG ORAL (11:06)
--- NOTE | 2019-02-02 11:06 | NUR ---
ER DISCHARGE NOTE: Patient is cleared to be discharged per ERMD, pt is aox4, on room air, with stable vital signs. pt was given dc and prescription instructions, pt was able to verbalize understanding, pt id band removed. pt is able to ambulate with steady gait. pt took all belongings.
== END 2019-02-02 11:06 | disposition home or self-care (01) ==
LOC: EMR 10:30
DX: J02.9 Acute pharyngitis, unspecified (principal); N76.0 Acute vaginitis; I10 Essential (primary) hypertension; J44.9 Chronic obstructive pulmonary disease, unspecified; E11.9 Type 2 diabetes mellitus without complications; E03.9 Hypothyroidism, unspecified; Z88.8 Allergy status to other drugs, medicaments and biological substances
CPT/HCPCS: 81025; 96372; J0696; Q0144; Z7502; 99283